=== PATIENT | female | born 1980 | race Caucasian/White ===

== ENCOUNTER 2025-04-16 10:33 | Outpatient (CLI) | payer OTHER | END 2025-04-16 10:34 | disposition home or self-care (01) | LOC: CSHDTY/OP 10:33 | PROVIDERS: ATTEND Nurse Practitioner Family | DX: Z71.3 Dietary counseling and surveillance (principal); E66.01 Morbid (severe) obesity due to excess calories; Z68.43 Body mass index [BMI] 50.0-59.9, adult | CPT/HCPCS: 97802 ==

== ENCOUNTER 2025-04-23 08:54 | Outpatient (CLI) | payer MEDICAID | END 2025-04-23 08:55 | disposition home or self-care (01) | LOC: CSHSLEEP 08:54 | PROVIDERS: ATTEND Student in an Organized Health Care Education/Training Program | DX: E66.2 Morbid (severe) obesity with alveolar hypoventilation (principal); F32.A Depression, unspecified; F41.9 Anxiety disorder, unspecified; E11.9 Type 2 diabetes mellitus without complications; E66.9 Obesity, unspecified; Z68.43 Body mass index [BMI] 50.0-59.9, adult; I25.10 Atherosclerotic heart disease of native coronary artery without angina pectoris; I11.9 Hypertensive heart disease without heart failure; J44.9 Chronic obstructive pulmonary disease, unspecified | CPT/HCPCS: 95810 ==

== ENCOUNTER 2025-05-09 08:56 | Outpatient (CLI) | payer MEDICAID | END 2025-05-09 08:57 | disposition home or self-care (01) | LOC: CSHSLEEP 08:56 | PROVIDERS: ATTEND Student in an Organized Health Care Education/Training Program | DX: G47.33 Obstructive sleep apnea (adult) (pediatric) (principal); R06.89 Other abnormalities of breathing; F32.A Depression, unspecified; F41.9 Anxiety disorder, unspecified; E11.9 Type 2 diabetes mellitus without complications; E66.9 Obesity, unspecified; Z68.43 Body mass index [BMI] 50.0-59.9, adult; J44.9 Chronic obstructive pulmonary disease, unspecified; I25.10 Atherosclerotic heart disease of native coronary artery without angina pectoris; I11.9 Hypertensive heart disease without heart failure; I25.2 Old myocardial infarction | CPT/HCPCS: 95811 ==